=== PATIENT | male | born 1940 | race Caucasian/White ===

== ENCOUNTER → 2017-11-07 | Outpatient (CLI) | payer OTHER | LOC: M.MRI 13:03 | DX: M77.11 Lateral epicondylitis, right elbow (principal) ==

== ENCOUNTER → 2021-06-25 | Outpatient (CLI) | payer MEDICARE | LOC: M.LAB 11:24 | PROVIDERS: ATTEND Family Medicine | DX: L21.9 Seborrheic dermatitis, unspecified (principal) ==